=== PATIENT | male | born 1970 | race African-American/Black ===

== ENCOUNTER 2024-01-24 16:18 | Emergency (ER) | payer MEDICAID, OTHER ==
[~2024-01-24] VITALS: Ht 182.9 cm; Wt 81.6 kg
[2024-01-24 16:45] VITALS: O2SAT 99
[2024-01-24 16:56] LABS: BASOPHILS % 0.5 % (0.0-2.0); EOSINOPHILS % 1.5 % (0.0-5.0); HEMATOCRIT. 36.2 % (42.0-52.0); HEMOGLOBIN. 11.9 g/dL (14.0-18.0); LYMPHOCYTES % 21.5 % (20.0-50.0); MEAN CORPUSCULAR HEMOGLOBIN 29.6 pg (28.0-32.0); MEAN CORPUSCULAR HGB CONC 32.9 g/dL (31.0-37.0); MEAN PLATELET VOLUME 7.3 fl (7.4-10.4); MONOCYTES % 9.8 % (2.0-8.0); NEUTROPHILS % 66.7 % (40.0-76.0); PLATELET 360 x1000/uL (130-400); RED BLOOD CELL COUNT 4.02 mill/uL (4.7-6.1); RED CELL DISTRIBUTION WIDTH 15.8 % (11.6-14.6); WHITE BLOOD COUNT 11.8 x1000/uL (4.5-11.0)
[2024-01-24 17:04] LABS: CHLORIDE 106 mEq/L (98-107); POTASSIUM 4.4 mEq/L (3.5-5.1); SODIUM 139 mEq/L (136-145)
[2024-01-24 17:05] LABS: CALCIUM 9.3 mg/dL (8.7-10.4); CARBON DIOXIDE 28 mEq/L (21-32)
[2024-01-24 17:10] LABS: CREATININE 1.2 mg/dL (0.6-1.3); GLUCOSE 106 mg/dL (70-105); UREA NITROGEN BLOOD 16 mg/dL (9-23)
[2024-01-24 17:12] LABS: ALANINE AMINOTRANSFERASE 10 IU/L (10-49); ALBUMIN 4.3 g/dL (3.2-4.8); ASPARTATE AMINOTRANSFERASE 17 IU/L (<34); BILIRUBIN TOTAL < 0.2 mg/dL (0.1-1.0)
[2024-01-24] MEDS: KETOROLAC 15MG/ML VIAL IM ONE (18:45)
[2024-01-24] MEDS ORDERED: NAPR-1176 MT (19:37)
[2024-01-24] MEDS ORDERED: LIDO700A15 TP (19:37)
[2024-01-24 20:25] VITALS: BP 104/73; PULSE 77; RESP 18; TEMP 36.89184; O2SAT 99
== END 2024-01-24 20:31 | disposition home or self-care (01) ==
LOC: ER 16:18
DX: M54.9 Dorsalgia, unspecified (principal); J44.9 Chronic obstructive pulmonary disease, unspecified
CPT/HCPCS: 99283; 80053; 85025; 36415; 96372; J1885

== ENCOUNTER 2024-05-22 21:16 | Emergency (ER) | payer MEDICAID ==
[~2024-05-22] VITALS: Ht 182.9 cm; Wt 84.0 kg
[~2024-05-22 21:16] MED LIST: LIDO700A15 TP; NAPR-681 MT
[2024-05-22 21:24] VITALS: O2SAT 98
[2024-05-22 21:25] VITALS: TEMP 97.8; O2SAT 98
[2024-05-23] MEDS ORDERED: P20 MT (01:19)
[2024-05-23] MEDS ORDERED: NAPR-681 MT (01:19)
[2024-05-23] MEDS ORDERED: ALBU90AE INH (01:19)
[2024-05-23 02:33] VITALS: BP 128/83; PULSE 83; RESP 18
[2024-05-23] MEDS: HYDROCODONE/ACETAMINOPHEN 10/325MG TABLET PO ONE (02:33)
== END 2024-05-23 02:34 | disposition home or self-care (01) ==
LOC: ER 21:16
DX: G89.29 Other chronic pain (principal); J44.9 Chronic obstructive pulmonary disease, unspecified; Z76.0 Encounter for issue of repeat prescription; Z79.1 Long term (current) use of non-steroidal anti-inflammatories (NSAID); Z85.528 Personal history of other malignant neoplasm of kidney
CPT/HCPCS: 99283